=== PATIENT | male | born 1965 | race Caucasian/White ===

== ENCOUNTER 2020-01-03 06:30 | Day surgery (SDC) | payer OTHER ==
[2020-01-03] MEDS ORDERED: Ringers Lactate 1,000 ML IV ONE (07:01)
[2020-01-03] MEDS ORDERED: LIDOCAINE 1% MPF 5 ML VIAL ONE (07:27)
[2020-01-03] MEDS ORDERED: propofoL 200 MG/20 ML VIAL IV ONE (07:27)
[2020-01-03 08:15] VITALS: TEMP 97.9
[2020-01-03 08:16] VITALS: O2SAT 97
[2020-01-03 08:17] VITALS: BP 122/79
--- NOTE | 2020-01-03 08:39 | ENDO RPT ---
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 ESTIMATED BLOOD LOSS: None CONSENT: The patient understands the risks and benefits of the procedure and understands that these risks include, but are not limited to: sedation, allergic reaction, infection, perforation and/or bleeding. Alternative means of evaluation and treatment include, among others: physical exam, x-rays, and/or surgical intervention. The patient elects to proceed with this endoscopic procedure. DESCRIPTION OF PROCEDURE: During intra-op preparation period all mechanical medical equipment was checked for proper function. Hand hygiene and appropriate measures for infection prevention was taken. Procedure, possible complications, alternatives including, but not limited to possibility of bleeding, perforation, tear, infection, sepsis, need for surgery, need for blood transfusion, were explained to the patient. After the risks, benefits and alternatives of the procedure were thoroughly explained, Informed consent was verified, confirmed and timeout was successfully executed by the treatment team. The patient was placed in the left lateral position. A digital rectal exam was performed and revealed external hemorrhoids. After appropriate level of anesthesia, the scope was passed. The EC-[id number] ([id number]) endoscope was introduced through the anus and advanced to the cecum, which was identified by the ileocecal valve. The quality of the prep was good. The instrument was then slowly withdrawn as the colon was fully examined. Scope withdrawal time was . COLON FINDINGS: A smooth sessile polyp ranging between 3-5mm in size with a friable surface was foundaprroximaterly 55 cm from anal verge. A polypectomy was performed using hot forceps. The resection was complete, the polyp tissue was completely retrieved and sent to histology. Retroflexed views revealed no abnormalities. The scope was then completely withdrawn from the patient and the procedure terminated. ADVERSE EVENTS: There were no complications. IMPRESSIONS: 1. Sessile polyp ranging between 3-5mm in size was found; polypectomy was performed in a piecemeal fashion using hot forceps 2. External hemorrhoids 3. Internal hemorrhoids RECOMMENDATIONS: 1. await biopsy results 2. fiber rich diet 3. follow-up: office 1 week(s) RECALL: for Colonoscopy, pending biopsy results. Papo Garcia MD eSigned: Papo Garcia MD 01/03/2020 8:39 AM cc: Dougie Kenney MD CPT CODES: ICD9 CODES: PATIENT NAME: Derrek Hercules MR#: [id number]
== END 2020-01-03 08:45 | disposition home or self-care (01) ==
LOC: PRE 06:30
PROVIDERS: ATTEND Surgery
PROC: 0DBP8ZX Excision of Rectum, Via Natural or Artificial Opening Endoscopic, Diagnostic (ICD-10-PCS; principal; 2020-01-03 07:30)
DX: K64.4 Residual hemorrhoidal skin tags (principal); K64.8 Other hemorrhoids; D12.9 Benign neoplasm of anus and anal canal
CPT/HCPCS: 88305; 45380; J2704; J7120